=== PATIENT | male | born 1970 ===

== ENCOUNTER 2018-07-04 14:33 | Emergency (ER) | payer MEDICAID, OTHER ==
[2018-07-04 14:33] VITALS: BMI 32.1
--- NOTE | 2018-07-04 15:12 | C.PDOC ---
History Of Present Illness 47 y/o male presents to the ED complaining of cramps all over body for 3-4 months, worsening this week. Patient has not seen a doctor yet for this complaint. States had something similar years ago, and was told he had abnormal electrolytes. Additionally, patient has PMHx of hypertension, on 10mg Norvasc per day, and reports he ran out 4 days ago. He currently denies any nausea, vomiting, diarrhea, dizziness, chest pain, GI bleed, cough, or difficulty breathing. Time Seen by Provider: 07/04/18 15:03 Chief Complaint (Nursing): Abdominal Pain History Per: Patient History/Exam Limitations: no limitations Onset/Duration Of Symptoms: Days Current Symptoms Are (Timing): Still Present Quality Of Discomfort: Cramping Past Medical History Reviewed: Historical Data, Nursing Documentation, Vital Signs Vital Signs: Last Vital Signs Temp 98 F 07/04/18 14:43 Pulse 95 H 07/04/18 14:43 Resp 20 07/04/18 14:43 BP 128/89 07/04/18 14:43 Pulse Ox 100 07/04/18 14:43 - Medical History PMH: HTN Family History: States: Unknown Family Hx - Social History Hx Alcohol Use: Yes Hx Substance Use: Yes - Immunization History Hx Tetanus Toxoid Vaccination: No Hx Influenza Vaccination: No Hx Pneumococcal Vaccination: No Review Of Systems Constitutional: Negative for: Fever, Chills Cardiovascular: Negative for: Chest Pain Respiratory: Negative for: Cough, Shortness of Breath Gastrointestinal: Negative for: Nausea, Vomiting, Abdominal Pain, Diarrhea Musculoskeletal: Positive for: Other (Cramping throughtout body) Skin: Negative for: Rash Neurological: Negative for: Weakness, Numbness, Dizziness Physical Exam - Physical Exam Appears: Non-toxic, No Acute Distress Skin: Warm, Dry, No Rash Head: Atraumatic, Normacephalic Eye(s): bilateral: PERRL, EOMI Neck: Supple Chest: Symmetrical, No Tenderness Cardiovascular: Rhythm Regular, No Murmur Respiratory: Normal Breath Sounds, No Accessory Muscle Use, Other (No respiratory distress) Gastrointestinal/Abdominal: Soft, Tenderness (mild tenderness to the LUQ, no bulging noted, no mass palpated.), No Distention, No Guarding, No Hernia Back: Normal Inspection, No CVA Tenderness Extremity: Bilateral: Atraumatic, Normal Color And Temperature Pulses: Left Dorsalis Pedis: Normal, Right Dorsalis Pedis: Normal Neurological/Psych: Oriented x3, Normal Speech, Normal Cognition, Normal Motor, Normal Sensation ED Course And Treatment - Laboratory Results Result Diagrams: 07/04/18 15:27 07/04/18 15:27 ECG: Interpreted By Me, Viewed By Me ECG Rhythm: Sinus Rhythm ECG Interpretation: No Acute Changes Rate From EC (bpm) O2 Sat by Pulse Oximetry: 100 (RA) Pulse Ox Interpretation: Normal Medical Decision Making Medical Decision Making: Plan: Blood work and urine sent to the lab. 30 mg IV Toradol given for pain control. 1826 pt with 2-3 months c/o cramps all over body, no cramped areas or hernias noted on exam, pt with normal cbc, mild cpk elevation in 500s, otherwise cmp normal and urine normal. will give toradol and iv fluids and d/c with pmd f/u. Disposition Counseled Patient/Family Regarding: Studies Performed, Diagnosis, Need For Followup - Disposition Referrals: [facility] [Outside] Disposition: HOME/ ROUTINE Disposition Time: 18:30 Condition: GOOD Additional Instructions: Follow up with your medical doctor or in medical clinic in the next week. Stay well hydrated, drink 6-8 cups water per day. Return to ER for any worse symptoms. Instructions: Nocturnal (Nighttime) Leg Cramps (DC) Forms: [facility] (Slovak), General Discharge Instructions - Clinical Impression Clinical Impression: Cramps, muscle, general - PA / ICD 9 CODER / Resident Statement MD/DO has reviewed & agrees with the documentation as recorded. - Scribe Statement The provider has reviewed the documentation as recorded by the Maryibmason Harris All medical record entries made by the Maryibmason were at my direction and personal ly dictated by me. I have reviewed the chart and agree that the record accurately reflects my personal performance of the history, physical exam, medical decision making, and the department course for this patient. I have also personally directed, reviewed, and agree with the discharge instructions and disposition.
[2018-07-04 15:32] LABS: BASO # 0.1 K/uL (0.0-0.2); BASO % 0.8 % (0.0-2.0); EOS # 0.1 K/uL (0.0-0.7); EOS % 1.4 % (0.0-4.0); HEMOGLOBIN 15.3 g/dL (12.0-18.0); LYMPH # 2.4 K/uL (1.0-4.3); LYMPH % 29.6 % (20.0-40.0); MEAN CELL VOLUME 90.4 fL (80.0-94.0); MEAN CORPUSCULAR HEMOGLOBIN 29.4 pg (27.0-31.0); MEAN CORPUSCULAR HGB CONC 32.5 g/dL (33.0-37.0); MEAN PLATELET VOLUME 8.7 fL (7.2-11.7); MONO # 0.4 K/uL (0.0-0.8); MONO % 5.5 % (0.0-10.0); NEUT # 5.1 K/uL (1.8-7.0); NEUT % 62.7 % (50.0-75.0); RBC 5.22 Mil/uL (4.40-5.90); RED CELL DISTRIBUTION WIDTH 15.1 % (11.5-14.5); WHITE BLOOD COUNT 8.1 K/uL (4.8-10.8)
[2018-07-04 15:51] LABS: ALB/GLOB RATIO 1.5 (1.0-2.1); ALBUMIN 4.9 g/dL (3.5-5.0); ALT/SGPT 61 U/L (21-72); AST/SGOT 54 U/L (17-59); BLOOD UREA NITROGEN 20 mg/dL (9-20); CALCIUM 9.8 mg/dl (8.6-10.4); GFR NON-AFRICAN AMERICAN 59
[2018-07-04 16:59] LABS: URINE BILIRUBIN NEGATIVE (NEGATIVE); URINE BLOOD NEGATIVE (NEGATIVE); URINE CLARITY Clear (Clear); URINE COLOR Yellow (YELLOW); URINE GLUCOSE (UA) NORMAL (Normal); URINE LEUKOCYTE ESTERASE NEG Leu/uL (Negative); URINE PROTEIN NEGATIVE (NEGATIVE); URINE UROBILINOGEN NORMAL mg/dL (0.2-1.0)
[2018-07-04] MEDS ORDERED: Sodium Chloride 0.9% 1,000 ML IV ONE (17:21)
[2018-07-04] MEDS ORDERED: Sodium Chloride 0.9% 1,000 ML ONE (17:29)
[2018-07-04 17:32] VITALS: BP 131/88; PULSE 78; RESP 17; TEMP 98.6
[2018-07-04 18:28] VITALS: O2SAT 100
== END 2018-07-04 19:00 | disposition home or self-care (01) ==
LOC: C.ER 14:33
DX: R25.2 Cramp and spasm (principal); I10 Essential (primary) hypertension; F17.210 Nicotine dependence, cigarettes, uncomplicated
CPT/HCPCS: 80053; 81001; 82550; 83735; 84100; 85025; 96361; 96374; 99285; J1885; J7030

== ENCOUNTER 2018-08-30 11:12 | Emergency (ER) | payer SELFPAY ==
[2018-08-30 11:12] VITALS: BMI 32.1
[2018-08-30] MEDS ORDERED: Multivitamin (MVI) 10 ML, Thiamine 100 MG, Folic Acid 1 MG in Sodium Chloride 0.9% 1,00... IV STA (11:55)
--- NOTE | 2018-08-30 12:26 | C.PDOC ---
History Of Present Illness 47 year old male is brought in by ambulance after a fall earlier today. Patient reports he fell when he was on a train on his way to work. Denies LOC. Patient admits to drinking alcohol last night. People on the train called for the ambulance after witnessing the fall. Patient has no other complaints. Patient appears intoxicated in the ER. Time Seen by Provider: 08/30/18 11:32 Chief Complaint (Nursing): Substance Abuse History Per: Patient, EMS History/Exam Limitations: no limitations Onset/Duration Of Symptoms: Hrs Current Symptoms Are (Timing): Still Present Past Medical History Reviewed: Historical Data, Nursing Documentation, Vital Signs Vital Signs: Last Vital Signs Temp 97.3 F L 08/30/18 11:23 Pulse 80 08/30/18 11:23 Resp 20 08/30/18 11:23 BP 96/58 L 08/30/18 11:23 Pulse Ox 95 08/30/18 11:23 - Medical History PMH: HTN Family History: States: No Known Family Hx - Social History Hx Alcohol Use: Yes Hx Substance Use: No (denies) - Immunization History Hx Tetanus Toxoid Vaccination: No Hx Influenza Vaccination: No Hx Pneumococcal Vaccination: No Review Of Systems Constitutional: Negative for: Fever, Chills Cardiovascular: Negative for: Chest Pain Respiratory: Negative for: Shortness of Breath Gastrointestinal: Negative for: Nausea, Vomiting, Abdominal Pain, Diarrhea Musculoskeletal: Negative for: Neck Pain Psych: Positive for: Other (Alcohol intoxication) Physical Exam - Physical Exam Appears: Non-toxic, No Acute Distress, Other (Intoxicated, has odor of alcohol) Skin: Warm, Dry Head: Atraumatic, Normacephalic, No Tenderness, No Abrasion, No Laceration, Other (no singh sign) Eye(s): bilateral: PERRL, EOMI Ear(s): Bilateral: Normal (no hemotympanum, no raccoon eyes) Oral Mucosa: Moist Neck: No Midline Cervical Tenderness, Other (left lateral neck tenderness) Chest: No Tenderness Cardiovascular: Rhythm Regular, No Murmur Respiratory: Normal Breath Sounds, No Rales, No Rhonchi, No Wheezing Gastrointestinal/Abdominal: Soft, No Tenderness Extremity: No Deformity, Other (Few abrasions on bilateral knees) Extremity: Bilateral: Normal ROM Neurological/Psych: Oriented x3, No Normal Speech (Slurred speech) ED Course And Treatment - Laboratory Results Result Diagrams: 08/30/18 12:40 08/30/18 13:16 O2 Sat by Pulse Oximetry: 95 (RA) Pulse Ox Interpretation: Normal - CT Scan/US Head CT Other Rad Studies (CT/US): Read By Radiologist, Radiology Report Reviewed CT/US Interpretation: IMPRESSION: No evidence of acute intracranial hemorrhage mass effect or midline shift. Cervical Spine CT Other Rad Studies (CT/US): Read By Radiologist, Radiology Report Reviewed CT/US Interpretation: IMPRESSION: No evidence of acute fracture or traumatic subluxation. Moderate size osteophyte bulging disc at C5-C6 which resulting in [id number] spinal stenosis. Medical Decision Making Medical Decision Making: Plan: --Labs --Cervical Spine CT --Head CT --UA --IV fluids 1530 continue to observe patient, have walked by several times, pt sleeping, easily aroused. will continue to observe for sobriety. 1658 pt with clear speech, feeling ,uch better. ambulating with steady gait, wants to go home. pt will be discharged. will give info for [facility] and [facility]. Disposition - Disposition Referrals: [facility] [Outside] [facility] [Outside] Disposition: HOME/ ROUTINE Disposition Time: 17:00 Condition: IMPROVED Additional Instructions: Please follow up in [facility] or [facility] to have someone to talk to about your life problems. Do not go to work intoxicated. Drink increased fluids. Follow up with medical doctor as well. Instructions: Closed Head Injury (DC), Alcohol Abuse and Alcoholism (DC) Forms: General Discharge Instructions, [facility] (Irish), Work Excuse - Clinical Impression Clinical Impression: Alcohol intoxication, Closed head injury, Fall from slip, trip, or stumble - PA / DOG SHOW JUDGE / Resident Statement MD/DO has reviewed & agrees with the documentation as recorded. - Scribe Statement The provider has reviewed the documentation as recorded by the Maryibe Mayra Bernal All medical record entries made by the Maryibe were at my direction and personally dictated by me. I have reviewed the chart and agree that the record accurately reflects my personal performance of the history, physical exam, medical decision making, and the department course for this patient. I have also personally directed, reviewed, and agree with the discharge instructions and disposition.
[2018-08-30 12:46] LABS: BASO # 0.1 K/uL (0.0-0.2); BASO % 0.9 % (0.0-2.0); EOS # 0.1 K/uL (0.0-0.7); EOS % 2.2 % (0.0-4.0); HEMOGLOBIN 15.8 g/dL (12.0-18.0); LYMPH # 2.5 K/uL (1.0-4.3); LYMPH % 43.6 % (20.0-40.0); MEAN CELL VOLUME 91.7 fL (80.0-94.0); MEAN CORPUSCULAR HEMOGLOBIN 29.3 pg (27.0-31.0); MEAN CORPUSCULAR HGB CONC 31.9 g/dL (33.0-37.0); MEAN PLATELET VOLUME 9.4 fL (7.2-11.7); MONO # 0.3 K/uL (0.0-0.8); MONO % 5.5 % (0.0-10.0); NEUT # 2.8 K/uL (1.8-7.0); NEUT % 47.8 % (50.0-75.0); RBC 5.41 Mil/uL (4.40-5.90); RED CELL DISTRIBUTION WIDTH 15.2 % (11.5-14.5); WHITE BLOOD COUNT 5.8 K/uL (4.8-10.8)
--- NOTE | 2018-08-30 13:04 | CT ---
Date of service: 08/30/2018 PROCEDURE: CT HEAD WITHOUT CONTRAST. HISTORY: etoh, fall backwards COMPARISON: Comparison is made with 07/08/2015 TECHNIQUE: Axial computed tomography images were obtained through the head/brain without intravenous contrast. Radiation dose: Total exam DLP = 1227.89 mGy-cm. This CT exam was performed using one or more of the following dose reduction techniques: Automated exposure control, adjustment of the mA and/or kV according to patient size, and/or use of iterative reconstruction technique. FINDINGS: HEMORRHAGE: No intracranial hemorrhage. BRAIN: No mass effect or edema. No atrophy or chronic microvascular ischemic changes. VENTRICLES: Unremarkable. No hydrocephalus. CALVARIUM: Unremarkable. PARANASAL SINUSES: Mild mucosal thickening in the ethmoid and left maxillary sinus is noted. MASTOID AIR CELLS: Unremarkable as visualized. No inflammatory changes. OTHER FINDINGS: None. IMPRESSION: No evidence of acute intracranial hemorrhage mass effect or midline shift.
--- NOTE | 2018-08-30 13:26 | CT ---
Date of service: 08/30/2018 PROCEDURE: CT Cervical Spine without contrast HISTORY: fall back wards, neck pain COMPARISON: None available. TECHNIQUE: Axial computed tomography images were obtained of the cervical spine without the use of intravenous contrast. Coronal and sagittal reformatted images were created and reviewed. Radiation dose: Total exam DLP = 592.56 mGy-cm. This CT exam was performed using one or more of the following dose reduction techniques: Automated exposure control, adjustment of the mA and/or kV according to patient size, and/or use of iterative reconstruction technique. FINDINGS: VERTEBRAE: No fracture. Normal alignment. No destructive bony lesion. DISCS/SPINAL CANAL/NEURAL FORAMINA: There is a moderate size osteophyte bulging disc at C5-C6 which resulting in [id number] spinal stenosis. Mild narrowing of the intervertebral disc is space noted at C5-C6. PARASPINAL SOFT TISSUES: Unremarkable. OTHER FINDINGS: None. IMPRESSION: No evidence of acute fracture or traumatic subluxation. Moderate size osteophyte bulging disc at C5-C6 which resulting in [id number] spinal stenosis.
[2018-08-30] MEDS ORDERED: Multivitamin (MVI) 10 ML, Thiamine 100 MG, Folic Acid 1 MG in Sodium Chloride 0.9% 1,00... IV ONE (13:30)
[2018-08-30 13:44] LABS: ALB/GLOB RATIO 1.6 (1.0-2.1); ALBUMIN 4.6 g/dL (3.5-5.0); ALT/SGPT 46 U/L (21-72); AST/SGOT 36 U/L (17-59); BLOOD UREA NITROGEN 10 mg/dL (9-20); CALCIUM 8.3 mg/dl (8.6-10.4); GFR NON-AFRICAN AMERICAN > 60
[2018-08-30 13:59] LABS: SQUAMOUS EPITHIAL < 1 /hpf (0-5); URINE BILIRUBIN NEGATIVE (NEGATIVE); URINE BLOOD NEGATIVE (NEGATIVE); URINE CLARITY Clear (Clear); URINE COLOR Straw (YELLOW); URINE GLUCOSE (UA) NORMAL (Normal); URINE LEUKOCYTE ESTERASE NEG Leu/uL (Negative); URINE PROTEIN NEGATIVE (NEGATIVE); URINE UROBILINOGEN NORMAL mg/dL (0.2-1.0)
[2018-08-30 14:20] LABS: BARBITURATES, UR NEGATIVE (NEGATIVE); BENZODIAZEPINES, UR NEGATIVE (NEGATIVE); OPIATES, UR NEGATIVE (NEGATIVE); PHENCYCLIDINE, UR NEGATIVE (NEGATIVE)
[2018-08-30 17:31] VITALS: BP 110/76; PULSE 86; RESP 20; TEMP 98
[2018-08-31 13:42] VITALS: O2SAT 95
== END 2018-08-30 17:35 | disposition home or self-care (01) ==
LOC: C.ER 11:12
DX: S09.90XA Unspecified injury of head, initial encounter (principal); W01.0XXA Fall on same level from slipping, tripping and stumbling without subsequent striking against object, initial encounter; Y92.815 Train as the place of occurrence of the external cause; F10.129 Alcohol abuse with intoxication, unspecified; Y90.8 Blood alcohol level of 240 mg/100 ml or more; I10 Essential (primary) hypertension; F17.210 Nicotine dependence, cigarettes, uncomplicated
CPT/HCPCS: 70450; 72125; 80053; 81001; 82948; 83735; 84100; 85025; 99285; G0480; J3411; J7030